=== PATIENT | female | born 1955 | race Caucasian/White ===

== ENCOUNTER 2019-02-16 10:10 | Day surgery (SDC) | payer OTHER ==
[2019-02-15 14:11] VITALS: BMI 30.7
[2019-02-16 10:56] VITALS: RESP 20; TEMP 98.6; O2SAT 100
[2019-02-16] MEDS ORDERED: Lactated Ringer's 500 ML IV SCH (12:00)
[2019-02-16] MEDS ORDERED: Lidocaine Hydrochloride 5 ML INJ ONE (12:12)
[2019-02-16] MEDS ORDERED: Propofol 10 mg/ml Inj (20 ML) ONE (12:12)
[2019-02-16] MEDS ORDERED: Lactated Ringer's 500 ML IV ONE (12:13)
[2019-02-16 12:15] VITALS: PULSE 107
[2019-02-16] MEDS ORDERED: Lactated Ringer's 1,000 ML IV ONE (12:55)
[2019-02-16 13:51] VITALS: BP 132/67
== END 2019-02-16 13:45 | disposition home or self-care (01) ==
LOC: C.SDS 10:10 → C.ENDO 10:10
PROVIDERS: ATTEND Internal Medicine Gastroenterology
DX: Z12.11 Encounter for screening for malignant neoplasm of colon (principal); D12.5 Benign neoplasm of sigmoid colon; K64.8 Other hemorrhoids
CPT/HCPCS: 45380; 45385; 82948; 88305; J2704; J3010; J7120